=== PATIENT | female | born 1940 | race Caucasian/White ===

== ENCOUNTER → 2018-08-23 | Outpatient (CLI) | payer MEDICARE, OTHER ==
[~2018-08-23] MED LIST: CLARITIN10 MG; FISH OIL 1,001000 M2 PO; MOBIC15 MG PO; PAXIL10 MG; SUPER B COMPLE150 MG PO; TRAMADOL 50 MG50 MG PO; TUMS PO; VITAMINC500 PO; ZESTRIL10 MG
== END ==
LOC: M.RAD 07-24 15:00
DX: Z12.31 Encounter for screening mammogram for malignant neoplasm of breast (principal); M81.0 Age-related osteoporosis without current pathological fracture; M85.89 Other specified disorders of bone density and structure, multiple sites; Z78.0 Asymptomatic menopausal state

== ENCOUNTER 2019-02-18 05:52 | Inpatient (IN) | payer MEDICARE, OTHER ==
[2019-02-07 10:58] LABS: ABSOLUTE BASOPHILS 0.1 thou/uL (0.0-0.2); ABSOLUTE EOSINOPHILS 0.1 thou/uL (0.0-0.7); ABSOLUTE LYMPHOCYTES 0.8 thou/uL (0.8-5.3); ABSOLUTE MONOCYTES 0.4 thou/uL (0.0-1.2); ABSOLUTE NEUTROPHILS 3.5 thou/uL (1.6-8.1); BASOPHILS 1.2 %; EOSINOPHILS 2.8 %; HEMATOCRIT 33.4 % (37.0-47.0); HEMOGLOBIN 10.8 gm/dL (12.0-15.0); LYMPHOCYTES 17.1 %; MCH 27.9 pg (26.0-34.0); MCHC 32.4 g/dL (28.0-37.0); MCV 86.1 fL (80.0-100.0); MONOCYTES 7.3 %; MPV 7.3 fl. (7.2-11.1); NUCLEATED RBCS 0 /100WBC; PLATELET COUNT* 275 thou/uL (150-400); POLYS 71.6 %; RBC 3.88 mil/uL (4.20-5.00); RDW-CV 16.4 % (10.5-14.5); WBC 4.9 thou/uL (4.0-11.0)
[2019-02-07 11:18] LABS: APTT 34.7 Seconds (25.0-31.3); INR 1.2; PROTIME 12.1 Seconds (9.20-11.50)
[2019-02-07 11:21] LABS: ALBUMIN 3.5 g/dL (3.4-5.0); CALCIUM 9.2 mg/dL (8.5-10.1); CREATININE 0.9 mg/dL (0.6-1.3); POTASSIUM 4.3 mmol/L (3.5-5.1); TOTAL BILIRUBIN 0.6 mg/dL (<0.1-1.0)
--- NOTE | 2019-02-07 11:37 | EKG ---
[place] [address] ELECTROCARDIOGRAM REPORT Name: BENJAMÍN ENGLAND Room: PRE IN .R.#: [id number] Admission: Attend Phys: Brit Sal Discharge: Date of : 42 Report #: [id number] THIS REPORT FOR: //name// [facility] Test Date: 2019-02-07 Test Time: 09:46:55 Pat Name: BENJAMÍN ENGLAND Department: Room: Gender: F Bryologist: : 1940 Requested By: Ward Maria Order Number: [id number] Reading MD: Kirk Madsen Measurements Intervals [place] Rate: 71 P: 80 [place]: 205 QRS: -2 QRSD: 80 T: 59 QT: 397 QTc: 432 Interpretive Statements Sinus rhythm Probable anteroseptal infarct, old No previous ECG available for comparison Electronically Signed On 02-07-2019 11:37:32 CDT by Kirk Madsen [email or web address] <ELECTRONICALLY SIGNED> By: Kirk Madsen MD, [facility] 02/07/19 1137 0946 0946 Kirk Madsen MD, FACC /EPI
[2019-02-07 11:59] LABS: ESR (SEDRATE) 10 mm/hr (0-30)
[~2019-02-18] VITALS: Ht 167.6 cm; Wt 56.7 kg
--- NOTE | ~2019-02-18 | OP ---
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 PROCEDURE: Right total hip arthroplasty. SURGEON: Ward Maria DO TOMATO PASTE MAKER: Chi Hdz DO SECOND CASH CONTROLLER: OSMANI James IMPLANTS: A Biomet G7 total hip system with a 56 mm acetabular component, a standard taper adapter, a 40 mm ceramic head, a 12 x 109 mm Taperloc lateralized Microplasty stem, a high-wall polyethylene liner. A 15 mm x 6.5 mm, a 30 mm x 6.5 mm, and a 25 mm x 6.5 mm screw. ESTIMATED BLOOD LOSS: 375 mL. MEDICATIONS GIVEN: Ancef 1 g preop, TXA IV preop 1 g. COMPLICATIONS: None. SPECIMENS: None. BLOOD RETURN: None. INDICATIONS FOR SURGERY: The patient is a 78-year-old female with longstanding severe hip pain. She has failed conservative treatment to date. The patient is here today for elective surgical intervention. 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 Risks have been talked about in detail to the patient and family. All questions were answered. Risks include but are not limited to neurovascular damage, infection, fracture, need for further surgery, failure of the prosthesis, recall of the prosthesis, allergy developed to prosthesis, [place] [address] OPERATIVE REPORT Name: BENJAMÍN ENGLAND ANN Room: [address] IN [facility]#: [id number] Admission: 02/18/19 Attend Phys: Brit Sal Discharge: Date of : 41 Report #: [id number] length discrepancy, deep vein thrombosis, pulmonary emboli, myocardial infarction, rhabdomyolysis, blood loss, blood transfusion reaction, anesthesia, anesthesia problems and even . A signed informed consent has been attached to chart, may refer to and her hip is marked preoperatively for timeout technique. DESCRIPTION OF PROCEDURE: The patient was taken to the operating room suite. After intubation and anesthesia, the patient was placed on the Bascom table in supine position. All pressure points were well padded. The right hip was designated as appropriate surgical site by timeout technique. It was then prepped and draped in the usual sterile fashion. An incision line was made with indelible marking pen followed by incision approximately 1-2 cm posterior to the ASIS and slightly distal to it, probably 6 cm in length in line with the leg. Incision was carried through skin and subcutaneous tissue down to the tensor fascia. The tensor fascia was then incised in line with the skin incision approximately 1 cm posterior to the interval of the sartorius and the tensor fascia flash musculature. This interval was dissected with finger dissection down to the circumflex vessels. Circumflex vessels were treated with the Aquamantys and resected with electrocautery. Dissection was then carried down to the anterior capsule which was treated with the Aquamantys and dissected. The femoral neck was then resected once at the base of the femoral neck a fingerbreadth above the lesser trochanter, the second at the base of the femoral head. The femoral head and neck was then removed with bone tenaculum. The acetabulum was then prepared by removing the remaining labral structures with the electrocautery and an [facility]. The acetabulum was then sequentially reamed. The reaming was done under C-arm fluoroscopy. Due to the significant protrusio that was present in the very thin medial wall, the acetabulum was reamed to slightly larger size in order to provide excellent surface area and support for the component. Once the appropriate size was reached, the proper acetabular component was obtained and placed on the back table. Copious irrigation carried out throughout the incision. A small amount of bone graft was placed to the medial wall at the most thin point of the acetabular protrusio. The final cup was then impacted firmly into place using external guide, direct visualization, and C-arm fluoroscopy for guidance. Once impacted firmly, 3 screw holes were drilled, measured, and the appropriate screw lengths were placed. Computer Methods Analyst x-ray was obtained to make sure that the screws were appropriately placed. The central apical screw hole was then filled with the cover and the final high-wall liner was then inserted with the high wall in the anterior superior plane. It was impacted firmly into place as well. Attention was then turned to the proximal femur. The Bascom table was positioned appropriately. The proximal femur was prepared with a box osteotome followed by the rat-tail broach. Then, it was sequentially broached up to a size 12 mm Taperloc stem. Trial reductions were performed with various-sized neck lengths. The standard neck gave the best range of motion, best stability, and best overall leg length compared to the contralateral side with transischial to the lesser tuberosity measurements. Final components were obtained, placed on the [facility] [address] [address] OPERATIVE REPORT Name: SAMANTABENJAMÍN Room: [address] IN M.R.#: [id number] Admission: 02/18/19 Attend Phys: Brit Sal Discharge: Date of : 42 Report #: [id number] back table. Trial components were removed. Copious irrigation carried out throughout the incision. The incision had been injected throughout the procedure, even prior to starting the incision with the anesthetic solution at various levels of depth. The final stem was placed into a clean, dry femoral neck with vancomycin powder sprinkled topically throughout. Once fully seated, the final 40 mm ceramic head and standard length neck was impacted onto a clean, dry Chiang taper neck. Reduction was performed. Final x-rays were obtained. Stability was checked. Excellent stability was noted. Final x-rays showed no fracture, dislocation, or problems with the cup. Leg length appeared to be nearly equal, if not equal. Final irrigation carried out throughout the incision. The incision was closed with a #1 running Quill suture to the tensor fascia, subcutaneous 2-0 Monocryl closure in interrupted fashion followed by 3-0 subcuticular skin closure reinforced with Dermabond glue. A Mepilex dressing was applied. The patient was given thigh-high SERGO hose, taken to recovery room in stable condition. No complications were encountered. Final instrument counts and sponge counts correct x 2. By: [id number] skip Nassar
[~2019-02-18 05:52] MED LIST changes: +ADVIL PM CAPLE1 EACH PO; +MULTAQ 400 MG400 MG PO; +SUPER B COMPLE1 EAC2 PO; -SUPER B COMPLE150 MG PO; +XARELTO20 MG PO; -ZESTRIL10 MG; +ZESTRIL10 MG PO
[2019-02-18 06:40] VITALS: BP 140/69
[2019-02-18 13:30] VITALS: BP 118/56
[2019-02-18 16:00] VITALS: BP 126/66
[2019-02-18 20:00] VITALS: BP 148/76
[2019-02-19] VITALS: BP 100/57
[2019-02-19 04:00] VITALS: BP 146/83
[2019-02-19 04:33] LABS: HEMATOCRIT 25.7 % (37.0-47.0); HEMOGLOBIN 8.2 gm/dL (12.0-15.0)
[2019-02-19 07:41] VITALS: BP 110/55
[2019-02-19] MEDS ORDERED: OXYCODONE HCL 55 MG PO (09:43)
[2019-02-19 10:10] VITALS: BP 110/55
== END 2019-02-19 15:02 | disposition home health service (06) | DRG 470 ==
LOC: M.PRE → M.TBA 05:52 → M.PRE 07:02 → M.ORTHSURG 13:25
PROVIDERS: Orthopaedic Surgery; ADMIT Internal Medicine
PROC: 0SR904A Replacement of Right Hip Joint with Ceramic on Polyethylene Synthetic Substitute, Uncemented, Open Approach (ICD-10-PCS; principal; 2019-02-18)
DX: M16.0 Bilateral primary osteoarthritis of hip (principal); M24.7 Protrusio acetabuli; I10 Essential (primary) hypertension; I48.91 Unspecified atrial fibrillation; Z85.828 Personal history of other malignant neoplasm of skin; Z90.49 Acquired absence of other specified parts of digestive tract; Z79.01 Long term (current) use of anticoagulants; Z79.899 Other long term (current) drug therapy

== ENCOUNTER 2019-04-29 06:31 | Inpatient (IN) | payer MEDICARE, OTHER ==
[2019-04-18 09:34] LABS: ABSOLUTE EOSINOPHILS 0.2 thou/uL (0.0-0.7); ABSOLUTE MONOCYTES 0.4 thou/uL (0.0-1.2); BASOPHILS 0.6 %; EOSINOPHILS 4.3 %; HEMATOCRIT 26.5 % (37.0-47.0); HEMOGLOBIN 8.3 gm/dL (12.0-15.0); LYMPHOCYTES 17.4 %; MCHC 31.3 g/dL (28.0-37.0); MONOCYTES 6.9 %; MPV 7.1 fl. (7.2-11.1); NUCLEATED RBCS 0 /100WBC; PLATELET COUNT* 348 thou/uL (150-400); POLYS 70.8 %; RBC 3.31 mil/uL (4.20-5.00); RDW-CV 16.7 % (10.5-14.5); WBC 5.6 thou/uL (4.0-11.0)
[2019-04-18 09:45] LABS: APTT 27.1 Seconds (25.0-31.3); INR 1.1; PROTIME 11.4 Seconds (9.20-11.50)
[2019-04-18 09:47] LABS: ALBUMIN 3.5 g/dL (3.4-5.0); CALCIUM 9.3 mg/dL (8.5-10.1); CREATININE 1.1 mg/dL (0.6-1.3); POTASSIUM 4.3 mmol/L (3.5-5.1); TOTAL BILIRUBIN 0.4 mg/dL (<0.1-1.0); TOTAL PROTEIN 7.1 g/dL (6.4-8.2)
[2019-04-18 11:07] LABS: ESR (SEDRATE) 15 mm/hr (0-30)
[~2019-04-29] VITALS: Ht 167.6 cm; Wt 56.7 kg
[~2019-04-29 06:31] MED LIST changes: +OXYCODONE HCL 55 MG PO
[2019-04-29 12:00] VITALS: BP 134/86
[2019-04-29 19:06] VITALS: BP 135/73
[2019-04-30] VITALS: BP 112/53
[2019-04-30 03:53] LABS: HEMATOCRIT 21.5 % (37.0-47.0)
[2019-04-30 04:00] VITALS: BP 127/56
[2019-04-30 04:03] LABS: HEMOGLOBIN 6.3 gm/dL (12.0-15.0)
[2019-04-30 05:18] LABS: HEMATOCRIT 19.2 % (37.0-47.0); HEMOGLOBIN 5.9 gm/dL (12.0-15.0)
--- NOTE | 2019-04-30 07:04 | OP ---
[address] [address] OPERATIVE REPORT Name: HEIDI ENGLAND Room: [address] IN M.R.#: [id number] Admission: 04/29/19 Attend Phys: Brit Sal Discharge: Date of : 42 Report #: [id number] THIS REPORT FOR: //name// CC: Letha Anthony DATE OF SERVICE: 04/29/2019 PREOPERATIVE DIAGNOSIS: Advanced degenerative joint disease of the left hip with protrusio acetabuli. POSTOPERATIVE DIAGNOSIS: Advanced degenerative joint disease of the left hip with protrusio acetabuli. PROCEDURE: Complex left total hip arthroplasty. SURGEON: Ward Maria DO SUPERINTENDENT DIVISION: Casper Whittaker DO SECOND SENIOR DIRECTOR INSIGHT: Chloe Pa PA-C First and second medical assistant float were necessary due to the complexity of the case, the need for multiple hands with retracting and the complexity of the protrusio acetabuli. ESTIMATED BLOOD LOSS: 325 mL. COMPLICATIONS: None. ANTIBIOTICS: 2 g Ancef IVPB 30 minutes prior to incision. IMPLANTS: Biomet G7 58 mm 4-hole acetabular shell, a 40 mm acetabular liner, a 6.5 x 30 mm screw, a 6.5 x 20 mm screw, a 6.5 x 15 mm screw, a 6.5 x 25 mm screw. An 11 x 107.5 mm Taperloc reduced distal femoral component, a 40 mm ceramic head with a -3 taper adapter. One gram of TXA IV and 2 grams of vancomycin powder topically. INDICATIONS FOR SURGERY: The patient is a 78-year-old female with longstanding severe degenerative joint disease to both hips. She recently underwent a right total hip arthroplasty in February. She is here today [place] [address] OPERATIVE REPORT Name: HEIDI ENGLAND Room: [address] IN [facility]#: [id number] Admission: 04/29/19 Attend Phys: Brit Sal Discharge: Date of : 42 Report #: [id number] arthroplasty with severe protrusio acetabuli. She is very close to being completely incarcerated with the hip with severe decrease in range of motion as well as with almost complete protrusion into the abdominal cavity. Risks and complications were discussed in detail with this patient including but not limited to neurovascular damage, infection, fracture, need for further surgery, failure of the prosthesis, recall of the prosthesis, allergy developed to prosthesis, deep vein thrombosis, pulmonary emboli, myocardial infarction, rhabdomyolysis, even . We have discussed risks of fractures, both intraoperatively and postoperatively, leg length inequalities, and continued chronic pain. We have discussed blood loss, blood transfusion reactions, anesthesia and anesthesia problems. All questions were answered. A signed informed consent has been attached to chart, may refer to. Her hip is marked preoperatively for time out technique. DESCRIPTION OF PROCEDURE: The patient was taken to the operative suite and placed on the table in supine position. Following general endotracheal anesthetic left hip was prepped and draped in sterile fashion. An incision was then made approximately 1-2 cm posterior to the ASIS and 1 cm distally to ASIS probably 6 cm in length through skin and subcutaneous tissue down to the tensor fascia. Tensor fascia was then incised in line with the skin incision a centimeter posterior to the interval between the sartorius and the tensor fascia flash. This interval was then bluntly dissected down to the circumflex vessels, which were then treated with the Aquamantys and resected with electrocautery. The dissection was carried down to the anterior capsule and the anterior capsule was visualized, treated with the Aquamantys, resected with electrocautery. The femoral neck was resected once at the base of femoral neck, a fingerbreadth above the lesser trochanter second at the base of the femoral head. The napkin ring portion of femoral neck was removed with a bone tenaculum. The femoral head was then removed from the acetabulum. It was necessary to remove some of the osteophytic lipping of the acetabulum prior to being able to get the incarcerated femoral head removed. The acetabulum was then prepared with use of rongeur, followed by removing the labral structures with electrocautery. It was then sequentially reamed to a size 57 mm reamer. The final reaming was done under direct visualization as well as C-arm fluoroscopy. The reamer was not taken completely into that inner wall as this was just completely sclerotic bone with its protrusio. Instead, the inner wall was then scraped with a curette. The femoral head was impacted firmly placed into the central portion of the acetabulum. The impaction was carried out with impacting head followed by putting the 57 mm reamer on reverse and very gently reaming in reverse to smooth the bone graft. The acetabular reamer was removed. The final cup was then impacted firmly into place with 4 holes facing in anterior medial and posterior direction. Four drill holes were then drilled, measured and the appropriate screw placement was performed. The screw placement was checked with C-arm fluoroscopy. The central apical screw was then checked and fixated. A high wall liner was impacted firmly in place with a high wall in the anterior superior alignment. Attention was then turned to the femur. The femur was [address] [address] OPERATIVE REPORT Name: HEIDI ENGLAND Room: [address] IN ..#: [id number] Admission: 04/29/19 Attend Phys: Brit Sal Discharge: Date of : 42 Report #: [id number] sequentially broached after preparing with a box osteotome and rat tail broach to a size 11 mm stem. Copious irrigation carried out throughout the incision. Trial reduction was performed. Range of motion was checked. Leg length was checked. The final 11 mm stem was then placed into a clean, dry femoral neck, impacted firmly into place after vancomycin powder was then topically sprayed throughout the incision. A final reduction with a -3 taper adapter and 40 mm ceramic head was then performed placing the femoral head and taper adapter on a clean, dry Chiang taper neck and impacting it firmly, reduction was performed. Range of motion was once again checked. It was extremely stable throughout. Container Washer Machine final x-rays were obtained intraoperatively. The hip was extremely stable. No fractures were noted. Bone graft was in good alignment. The cup was in good alignment. Leg length was excellent. The incision was then thoroughly irrigated. It had been injected layer by layer throughout the procedure with the anesthetic solution even prior to the incision. The incision was then closed with a running #1 Quill to the tensor fascia, followed by a skin reapproximation with 2-0 Monocryl subcutaneous sutures followed by running 3-0 Stratafix subcuticular suture reinforced with Dermabond glue. A dry Mepilex dressing was applied followed by a thigh high SERGO hose stocking. The patient tolerated the procedure well and was taken to recovery in stable condition. No complications were encountered. Final instrument counts and sponge counts correct x 2. <ELECTRONICALLY SIGNED> By: Ren Ro DO 04/30/19 0704 1541 2037Ward Maria DO /nt
[2019-04-30 07:35] VITALS: BP 102/44; BP 113/53; BP 115/44; BP 135/54; BP 99/47
[2019-04-30 07:50] VITALS: BP 99/47
[2019-04-30 13:18] LABS: HEMATOCRIT 24.6 % (37.0-47.0); HEMOGLOBIN 7.9 gm/dL (12.0-15.0)
[2019-04-30 20:50] VITALS: BP 126/51
[2019-05-01 04:00] VITALS: BP 120/55
[2019-05-01 05:23] LABS: HEMATOCRIT 20.7 % (37.0-47.0); MCH 25.7 pg (26.0-34.0); MCV 77.7 fL (80.0-100.0); MPV 7.4 fl. (7.2-11.1); RBC 2.66 mil/uL (4.20-5.00); RDW-CV 16.1 % (10.5-14.5); WBC 7.1 thou/uL (4.0-11.0)
[2019-05-01 05:31] LABS: CALCIUM 8.3 mg/dL (8.5-10.1); CREATININE 0.8 mg/dL (0.6-1.3); POTASSIUM 3.8 mmol/L (3.5-5.1)
[2019-05-01 05:40] LABS: HEMOGLOBIN 6.8 gm/dL (12.0-15.0)
[2019-05-01 08:30] VITALS: BP 118/58
[2019-05-01 12:41] VITALS: BP 109/50; BP 84/43; BP 95/46; BP 97/49; BP 98/42
[2019-05-01 16:00] VITALS: BP 106/49
[2019-05-01 18:31] LABS: HEMATOCRIT 24.8 % (37.0-47.0); HEMOGLOBIN 8.1 gm/dL (12.0-15.0)
[2019-05-01 20:00] VITALS: BP 109/48
[2019-05-02] VITALS: BP 120/52
[2019-05-02 04:00] VITALS: BP 126/63
[2019-05-02 07:40] VITALS: BP 114/44
[2019-05-02] MEDS ORDERED: COLACE 100 MG100 MG PO (07:58)
[2019-05-02] MEDS ORDERED: OXYCODONE HCL 55 MG PO (07:58)
[2019-05-02 08:11] LABS: HEMATOCRIT 24.3 % (37.0-47.0); HEMOGLOBIN 8.1 gm/dL (12.0-15.0)
[2019-05-02 12:04] VITALS: BP 114/44
[2019-05-02] MEDS ORDERED: TRAMADOL 50 MG50 MG PO (12:21)
== END 2019-05-02 13:35 | disposition home or self-care (01) | DRG 470 ==
LOC: M.PRE 06:31 → M.TBA 10:58 → M.ORTHSURG 10:58
PROVIDERS: Internal Medicine; Orthopaedic Surgery; ADMIT Internal Medicine
PROC: 0SRB03Z Replacement of Left Hip Joint with Ceramic Synthetic Substitute, Open Approach (ICD-10-PCS; principal; 2019-04-29)
DX: M16.12 Unilateral primary osteoarthritis, left hip (principal); D62 Acute posthemorrhagic anemia; M24.7 Protrusio acetabuli; I10 Essential (primary) hypertension; I48.91 Unspecified atrial fibrillation; Z98.49 Cataract extraction status, unspecified eye; Z79.899 Other long term (current) drug therapy

== ENCOUNTER → 2019-06-06 | Outpatient (CLI) | payer MEDICARE, OTHER ==
[~2019-06-06] MED LIST changes: +COLACE 100 MG100 MG PO
== END ==
LOC: M.CT 10:49
DX: M25.852 Other specified joint disorders, left hip (principal); Z96.642 Presence of left artificial hip joint

== ENCOUNTER 2021-02-02 11:47 | Inpatient (IN) | payer MEDICARE, OTHER ==
[~2021-02-02] VITALS: Ht 170.2 cm; Wt 64.0 kg
[2021-02-02 11:58] VITALS: BP 126/58
[2021-02-02 12:10] LABS: HEMATOCRIT 40.7 % (37.0-47.0); HEMOGLOBIN 13.8 gm/dL (12.0-15.0); MCHC 34.1 g/dL (28.0-37.0); MPV 8.1 fl. (7.2-11.1); NUCLEATED RBCS 0 /100WBC; PLATELET COUNT* 185 thou/uL (150-400); RBC 4.33 mil/uL (4.20-5.00); RDW-CV 14.5 % (10.5-14.5); WBC 14.7 thou/uL (4.0-11.0)
[2021-02-02 12:15] LABS: CALCIUM 8.9 mg/dL (8.5-10.1); CREATININE 1.8 mg/dL (0.6-1.3)
[2021-02-02 12:20] LABS: ALBUMIN 3.1 g/dL (3.4-5.0); MAGNESIUM 2.4 mg/dL (1.8-2.4); TOTAL BILIRUBIN 0.8 mg/dL (<0.1-1.0); TOTAL PROTEIN 7.4 g/dL (6.4-8.2)
[2021-02-02 12:34] LABS: ABSOLUTE MONOCYTES 0.7 thou/uL (0.0-1.2); ABSOLUTE NEUTROPHILS 12.9 thou/uL (1.6-8.1); ANISOCYTOSIS 1+; PLATELET ESTIMATE ADEQUATE; POIKILOCYTOSIS 1+
[2021-02-02 13:22] LABS: URINE BLOOD 3+ (Negative); URINE CLARITY SL CLOUDY; URINE COLOR DARK YELLOW; URINE GLUCOSE-RANDOM NEGATIVE (Negative); URINE KETONES TRACE (Negative); URINE LEUKOCYTES 2+ (Negative); URINE NITRITE POSITIVE (Negative); URINE PROTEIN 2+ (Negative); URINE SPECIFIC GRAVITY 1.025 (1.005-1.030)
[2021-02-02 13:23] LABS: ICTOTEST (BILI CONFIRMATORY) Negative (Negative); URINE BILIRUBIN 1+ (Negative)
[2021-02-02 13:25] LABS: CASTS None Seen /LPF (None Seen); CRYSTALS None Seen /LPF (None Seen); MUCUS 0-3 Light strn/LPF (None Seen); SQUAMOUS 0-3 Few /LPF (0-3); URINE RBC >20 Many /HPF (0-2)
--- NOTE | 2021-02-02 14:57 | EKG ---
[place] [address] ELECTROCARDIOGRAM REPORT Name: HEIDI ENGLAND Room: [place] [address] ADM IN [facility]#: [id number] Admission: 02/02/21 Attend Phys: Alex Prajapati Discharge: Date of : 42 Date of Service: 02/02/21 1156 Report #: [id number] THIS REPORT FOR: //name// [facility] ED Test Date: 2021-02-02 Test Time: 11:56:16 Pat Name: HEIDI ENGLAND Department: Room: [facility] Gender: F Director Of Oncology: DSLela : 1940 Requested By: Luigi Ferro Order Number: [id number] MD: Gavin Davis Measurements Intervals [place] Rate: 124 P: [place]: QRS: 24 QRSD: 82 T: 66 QT: 302 QTc: 434 Interpretive Statements Atrial fibrillation Anteroseptal infarct, old Baseline wander in lead(s) II,aVR Compared to ECG 02/07/2019 09:46:55 Sinus rhythm no longer present Myocardial infarct finding still present Electronically Signed On 02-02-2021 14:57:44 CDT by Gavin Davis [email or web address] <ELECTRONICALLY SIGNED> By: Gavin Davis MD, [facility] 02/02/21 1457 1156 1156 Gavin Davis MD, [facility] /EPI
[2021-02-02 15:07] VITALS: BP 128/59
[2021-02-02 15:35] VITALS: BP 118/45
[2021-02-02 16:00] VITALS: BP 96/74
[2021-02-02] MEDS ORDERED: XARELTO20 MG PO (16:41)
[2021-02-02] MEDS ORDERED: ALEVE PM CAPLE1 EACH PO (16:42)
[2021-02-02] MEDS ORDERED: VITAMIN D325 MC3 PO (16:43)
[2021-02-02] MEDS ORDERED: CALCIUM500 MG PO (16:45)
[2021-02-02] MEDS ORDERED: LISINOPRIL20 MG PO (16:46)
[2021-02-02 20:00] VITALS: BP 102/45
[2021-02-03] VITALS (7 sets, daily range): BP systolic 97–123; BP diastolic 44–63
[2021-02-03 04:11] LABS: HEMATOCRIT 28.9 % (37.0-47.0); MCHC 34.4 g/dL (28.0-37.0); MPV 8.1 fl. (7.2-11.1); RBC 3.11 mil/uL (4.20-5.00); RDW-CV 14.3 % (10.5-14.5); WBC 8.4 thou/uL (4.0-11.0)
[2021-02-03 04:21] LABS: HEMOGLOBIN 9.9 gm/dL (12.0-15.0)
[2021-02-03 04:32] LABS: CALCIUM 7.7 mg/dL (8.5-10.1); CREATININE 1.5 mg/dL (0.6-1.3); POTASSIUM 3.9 mmol/L (3.5-5.1)
--- NOTE | 2021-02-03 14:09 | 2DMMODE ---
[place] [address] 2 D/M-MODE ECHOCARDIOGRAM Name: HEIDI ENGLAND Room: [address] IN [facility]#: [id number] Admission: 02/02/21 Attend Phys: Alex Prajapati Discharge: Date of : 42 Date of Service: 02/03/21 1408 Report #: [id number] THIS REPORT FOR: cc: Letha Danielson,Letha Ceballos,Gavin Grider MD [facility] ~ APPROVED REPORT Study performed: 02/03/2021 09:47:54 EXAM: Comprehensive 2D, Doppler, and color-flow Echocardiogram Patient Location: In-Patient Room #: 208 Status: routine BSA: 1.74 HR: 91 bpm BP: 108/61 mmHg Rhythm: NSR Other Information Study Quality: Excellent Indications Atrial Fibrillation 2D Dimensions IVSd: 9.18 (7-11mm) LVOT Diam: 19.88 (18-24mm) LVDd: 43.13 mm PWd: 9.39 (7-11mm) Ascending Ao: 28.93 (22-36mm) LVDs: 24.01 (25-40mm) Aortic Root: 28.81 mm Volumes Left Atrial Volume (Systole) LA ESV Index: 30.70 mL/m2 Aortic Valve AoV Peak Bear.: 1.74 m/s AO Peak Gr.: 12.05 mmHg LVOT Max P.94 mmHg AO Mean Gr.: 5.94 mmHg LVOT Mean P.21 mmHg LVOT Max V: 1.58 m/s AO V2 VTI: 25.49 cm LVOT Mean V: 0.92 m/s SILVER (VTI): 3.34 cm2 LVOT V1 VTI: 27.47 [place] [address] 2 D/M-MODE ECHOCARDIOGRAM Name: HEIDI ENGLAND Room: [address] IN ..#: [id number] Admission: 02/02/21 Attend Phys: Alex Prajapati Discharge: Date of : 42 Date of Service: 02/03/21 1408 Report #: [id number] Mitral Valve E/A Ratio: 1.32 MV Decel. Time: 176.12 ms MV E Max Bear.: 1.08 m/s MV PHT: 51.07 ms MVA (PHT): 4.31 cm2 TDI E/Lateral E': 8.31 E/Medial E': 8.31 Medial E' Bear.: 0.13 m/s Lateral E' Bear.: 0.13 m/s Pulmonary Valve PV Peak Bear.: 1.11 m/s PV Peak Gr.: 4.89 mmHg Tricuspid Valve RAP Estimate: 5.00 mmHg TR Peak Gr.: 37.05 mmHg RVSP: 42.00 mmHg PA Pressure: 42.00 mmHg Left Ventricle The left ventricle is normal size. There is normal LV segmental wall motion. There is normal left ventricular wall thickness. Left ventricular systolic function is normal. The left ventricular ejection fraction is within the normal range. LVEF is 60-65%. The left ventricular diastolic function is normal. Right Ventricle The right ventricle is normal size. The right ventricular systolic function is normal. Atria Left atrium is mildly dilated. The right atrium size is normal. Aortic Valve The aortic valve is normal in structure. No aortic regurgitation is present. There is no aortic valvular stenosis. Mitral Valve The mitral valve is normal in structure. Mild mitral annular calcification. Trace mitral regurgitation. No evidence of mitral valve stenosis. Tricuspid Valve The tricuspid valve is normal in structure[place] [address] 2 D/M-MODE ECHOCARDIOGRAM Name: HEIDI ENGLAND Room: [address]#: [id number] Admission: 02/02/21 Attend Phys: Alex Prajapati Discharge: Date of : 42 Date of Service: 02/03/21 1408 Report #: [id number] regurgitation. estimated pa pressure 50 mm Hg Pulmonic Valve Pulmonic valve is not well visualized. There is no pulmonic valvular regurgitation. Great Vessels The aortic root is normal in size. IVC is normal in size and collapses >50% with inspiration. Pericardium There is no pericardial effusion. <Conclusion> LVEF is 60-65%. Mild tricuspid regurgitation. estimated pa pressure 50 mm Hg Left atrium is mildly dilated. <ELECTRONICALLY SIGNED> By: Gavin Davis MD, [facility] 02/03/21 1408 1408 1408 Gavin Davis MD, FAC /INF
[2021-02-04 04:56] LABS: HEMATOCRIT 30.6 % (37.0-47.0); HEMOGLOBIN 10.3 gm/dL (12.0-15.0); MCH 31.6 pg (26.0-34.0); MCHC 33.8 g/dL (28.0-37.0); MCV 93.3 fL (80.0-100.0); RBC 3.27 mil/uL (4.20-5.00); RDW-CV 14.6 % (10.5-14.5); WBC 9.1 thou/uL (4.0-11.0)
[2021-02-04 05:04] VITALS: BP 133/65
[2021-02-04 05:12] LABS: CALCIUM 7.7 mg/dL (8.5-10.1); CREATININE 1.3 mg/dL (0.6-1.3)
[2021-02-04 08:00] VITALS: BP 142/71
[2021-02-04] MEDS ORDERED: CEFDINIR300 MG PO (10:11)
[2021-02-04 11:48] VITALS: BP 142/71
--- NOTE | 2021-02-05 08:22 | CON ---
[address] [address] CONSULTATION Name: HEIDI ENGLAND Room: [address] IN M.R.#: [id number] Admission: 02/02/21 Attend Phys: Brit Sal Discharge: 02/04/21 Date of : 42 Report #: [id number] THIS REPORT FOR: cc: Letha Danielson Linda J. DO Liston, Michael J. MD [facility] ~ DOC #: [id number] cc: Letha Danielson DO, David R. Blick, MD [facility] Daryn Grant MD DATE OF CONSULTATION: 02/02/2021 CARDIOLOGY CONSULT INDICATION: Recurrent atrial fibrillation. HISTORY OF PRESENT ILLNESS: The patient is a very pleasant 80-year-old white female who is known to our service with history of paroxysmal atrial fibrillation. She is chronically anticoagulated with Xarelto and having no bleeding problems. She had been maintaining sinus rhythm on Multaq 400 mg twice daily. The patient reports febrile illness since last with anorexia starting on Monday. The patient developed recurrent symptoms of atrial fibrillation with rapid ventricular response rate last night. The patient presented to her primary care physician's office today, was noted to have a rapid irregular heart rhythm. In the Emergency Room, she was found to have atrial fibrillation with a rapid ventricular response rate. She has remained hemodynamically stable despite the change in her heart rhythm. She denies chest pain. She is not having shortness of breath. Her primary symptoms were anorexia and fever. PAST MEDICAL HISTORY: 1. Paroxysmal atrial fibrillation. 2. Hypertension. 3. Osteoporosis. 4. Osteoarthritis. 5. Appendectomy. 6. Cataract extraction. 7. Hip surgery, right. 8. Hip surgery with replacement, left. FAMILY HISTORY: Positive for heart disease. SOCIAL HISTORY: The patient is a lifelong nonsmoker. [place] [address] CONSULTATION Name: HEIDI ENGLAND Room: [address]#: [id number] Admission: 02/02/21 Attend Phys: Brit Sal Discharge: 02/04/21 Date of : 42 Report #: [id number] CURRENT MEDICATIONS: Calcium carbonate 500 mg daily, Colace 100 mg daily, Multaq 400 mg b.i.d., lisinopril 10 mg daily, Xarelto 10 mg with dinner, tramadol 50 mg p.r.n., vitamin B complex with vitamin C 1 tablet daily. REVIEW OF SYSTEMS: A 14-point review of systems as per HPI, otherwise unremarkable. PHYSICAL EXAMINATION: VITAL SIGNS: Stable. Blood pressure is 118/45, pulse is 68 and regular. GENERAL: This is a pleasant female in no distress. Mood and affect appropriate. HEENT: Extraocular muscles intact. Mucous membranes are moist. NECK: Examination of the neck shows no jugular venous distention. I do not appreciate carotid bruit. CHEST: Reveals clear lung kinney without wheezes or rales. CARDIAC: Reveals a regular rhythm with normal S1 and S2. I do not appreciate gallop or murmur. ABDOMEN: Reveals normal bowel sounds. EXTREMITIES: Shows no edema. Peripheral pulses 2+. SKIN: Dry. LABORATORY DATA: EKG on arrival shows atrial fibrillation with rapid ventricular response rate. No acute ST segment changes appreciated. Labs are reviewed. Electrolytes within normal limits. BUN 45, creatinine 1.8, EGFR 27. Initial troponin is pending. White blood cell count 14.7, hemoglobin 13.8, platelet count 185,000. UA shows evidence of WBCs, nitrite positive consistent with UTI. Chest x-ray shows no acute cardiopulmonary abnormality. IMPRESSION AND RECOMMENDATION: 1. Recurrent atrial fibrillation with rapid ventricular response rate. The patient has returned to normal sinus rhythm. I will give her an additional dose of Multaq and resume Multaq 400 mg b.i.d. and Xarelto at current dose. We will follow clinically at this point in time. Repeat echocardiogram at this time. Serial troponins pending. 2. History of hypertension. Blood pressure is normal presently. Lisinopril being held in the setting of acute renal failure. 3. Acute renal failure. The patient has been rehydrated with labs pending for tomorrow. 4. Urinary tract infection per hospitalist. 5. History of carotid vascular disease, presently [place] [address] CONSULTATION Name: HEIDI ENGLAND Room: [address] IN ..#: [id number] Admission: 02/02/21 Attend Phys: Brit Sal Discharge: 02/04/21 Date of : 42 Report #: [id number] no symptoms to suggest TIA or stroke. MD DESHAWN Bernabe/[place] <ELECTRONICALLY SIGNED> By: Daryn Grant MD, [facility] 02/05/21 0822 1610 2216[facility] Zina Grant MD, PRATIBHA /
== END 2021-02-04 12:00 | disposition home or self-care (01) | DRG 682 ==
LOC: M.ERS 11:47 → M.2W 13:50 → M.TBA-ER 13:50 → M.2W 15:17
PROVIDERS: Emergency Medicine; Family Medicine; ADMIT Internal Medicine; ATTEND Internal Medicine
DX: N17.0 Acute kidney failure with tubular necrosis (principal); R65.11 Systemic inflammatory response syndrome (SIRS) of non-infectious origin with acute organ dysfunction; N30.01 Acute cystitis with hematuria; I48.20 Chronic atrial fibrillation, unspecified; Z20.822 Contact with and (suspected) exposure to COVID-19; I10 Essential (primary) hypertension; I48.0 Paroxysmal atrial fibrillation; M81.0 Age-related osteoporosis without current pathological fracture; M19.90 Unspecified osteoarthritis, unspecified site; Z96.642 Presence of left artificial hip joint; B96.89 Other specified bacterial agents as the cause of diseases classified elsewhere; Z90.49 Acquired absence of other specified parts of digestive tract; Z98.49 Cataract extraction status, unspecified eye; Z82.49 Family history of ischemic heart disease and other diseases of the circulatory system